=== PATIENT | male | born 1950 | race Caucasian/White ===

== ENCOUNTER 2021-02-15 12:27 | Inpatient (IN) | payer OTHER ==
[~2021-02-15] VITALS: Ht 177.8 cm; Wt 67.2 kg
[2021-02-15] VITALS (7 sets, daily range): BP systolic 120–143; BP diastolic 66–86; PULSE 65–105; TEMP 97.3–98.6
[~2021-02-15 12:27] MED LIST: ASPIRIN 81M81 MG/TA2 PO; COREG 6.256.25 MG/TA PO; PRADAXA 150MG150 MG PO; TAMBOCOR 1100 MG/TAB PO
[2021-02-15] MEDS ORDERED: TOPROL XL 50MG50 MG PO (13:13)
[2021-02-15] MEDS ORDERED: ALLEGRA 60MG TA60 MG PO (13:13)
[2021-02-15] MEDS ORDERED: ONE-A-DAY ESSE1 EACH PO (13:14)
[2021-02-15] MEDS ORDERED: NORCO 325 MG-51 TAB PO (17:29)
--- NOTE | 2021-02-15 18:29 | NUR ---
PT TO ROOM 322 PER BED WITH REPORT FROM [facility] @1941. PT IS A/O X3, LUNGS CTA, BOWEL SOUNDS HYPO ACTIVE. 3 ROBOTIC INCISIONS CDI WITH BANDAIDS. PT HAS JOCK STRAP SUPPORT INPLACE. SCDS PLACED BILATERALLY.VSS. AT BEDSIDE.
--- NOTE | 2021-02-15 18:47 | NUR ---
RECEIVED CHANGE OF SHIFT REPORT FROM DAY SHIFT NURSE.
--- NOTE | 2021-02-15 19:15 | NUR ---
REPORTS SOME ABD FULLNESS DISCOMFORT. DENIES CHEST PAIN/SOA/NAUSEA AT THIS TIME. OX PER NC AT 2L. AT BED SIDE
--- NOTE | 2021-02-15 19:43 | NUR ---
RECEIVED LATE SUPPER TRAY. DENIES NAUSEA AT THIS TIME. DENIES URGE TO VOID CURRENTLY. REMINDED PATIENT TO CALL FOR STAFF ASSIST WHEN UP FOR THE FIRST TIME POST OP. IVF INFUSING WITH NO PROBLEMS. OXYGEN PER NC AT THIS TIME TO PRANAV NARES. DENIES CHEST PAIN/SOA AT THIS TIME. REPORTS ABD FULLNESS STILL FOR DISCOMFORT.
--- NOTE | 2021-02-15 21:32 | NUR ---
PATIENT UP AMB IN ROOM WITH NO REPORTED PROBLEMS. REPORTS SOME ABD ACROSS UPPER ABD THAT IS TOLERABLE, NO NEEDS FOR PAIN MEDS AT THIS TIME. VS TAKEN. PATIENT REPORTS HE IS READY TO BE DISMISSED.
--- NOTE | 2021-02-15 21:57 | NUR ---
PATIENT SIGNED DISCHARGE PAPERWORK WITH NO FURTHER REPORT QUESTIONS OR CONCERNS AT TIME OF DISCHARGE. PRESENT TO TAKE PATIENT HOME PER PRIVATE CAR.
== END 2021-02-15 21:45 | disposition home or self-care (01) | DRG 352 ==
LOC: SDCO 12:27 → SURG 18:15
PROVIDERS: ADMIT Surgery
PROC: 8E0W4CZ Robotic Assisted Procedure of Trunk Region, Percutaneous Endoscopic Approach (ICD-10-PCS; 2021-02-15)
PROC: 0YUA4JZ Supplement Bilateral Inguinal Region with Synthetic Substitute, Percutaneous Endoscopic Approach (ICD-10-PCS; principal; 2021-02-15 14:00)
DX: K40.20 Bilateral inguinal hernia, without obstruction or gangrene, not specified as recurrent (principal); I48.91 Unspecified atrial fibrillation; Z79.82 Long term (current) use of aspirin
CPT/HCPCS: OP; C1781; J1100; J2370; J2405; J2704; J3010

== ENCOUNTER 2024-06-30 13:10 | Emergency (ER) | payer OTHER ==
[~2024-06-30] VITALS: Ht 175.3 cm; Wt 65.9 kg
[~2024-06-30 13:10] MED LIST changes: +ALLEGRA 60MG TA60 MG PO; +NORCO 325 MG-51 TAB PO; +ONE-A-DAY ESSE1 EACH PO; +TOPROL XL 50MG50 MG PO
[2024-06-30 13:26] VITALS: TEMP 98.5
[2024-06-30] MEDS ORDERED: Ondansetron 4 MG/2 ML VIAL IV ONE (13:30)
[2024-06-30] MEDS ORDERED: LR 1,000 ML IV ONE (13:30)
[2024-06-30 14:04] LABS: COLLECTION METHOD CLEAN CATCH
[2024-06-30 14:08] LABS: HEMATOCRIT 45.9 % (42.0-52.0); HEMOGLOBIN 15.5 g/dl (13.5-18.0); MEAN CELL VOLUME 91 fl (80.0-100.0); MEAN CORPUSCULAR HEMOGLOBIN 31 pg (27-31); MEAN CORPUSCULAR HGB CONC 34 g/dl (33.0-37.0); MEAN PLATELET VOLUME 9.6 fl (7.4-10.4); PLATELET COUNT 240 K/mm3 (130-400); RED BLOOD COUNT 5.06 M/mm3 (4.20-5.60); REDCELL DISTRIBUTION WIDTH-CV 12.9 % (11.5-14.5)
[2024-06-30 14:15] LABS: PH 5.5 (5.0-8.5); URINE APPEARANCE CLEAR (CLEAR/HAZY); URINE BLOOD NEGATIVE (NEGATIVE); URINE COLOR YELLOW (YELLOW); URINE GLUCOSE NEGATIVE (NEGATIVE); URINE KETONE NEGATIVE (NEGATIVE); URINE NITRATE POSITIVE (NEGATIVE); URINE PROTEIN(semi-quant) NEGATIVE (NEGATIVE); URINE UROBILINOGEN 0.2 E.U/dL (0.2-1.0)
[2024-06-30 14:24] LABS: ALBUMIN 3.8 g/dL (3.4-4.8); BILIRUBIN,TOTAL 0.9 mg/dL (0.2-1.2); C-REACTIVE PROTEIN 7.03 mg/dL (0.00-0.50); CREATININE, serum 0.79 mg/dL (0.72-1.25); POTASSIUM 3.8 mEq/L (3.5-4.5); TOTAL PROTEIN 6.7 g/dl (6.2-8.1)
[2024-06-30] MEDS ORDERED: cefTRIAXone 2 G in Water For Injection,Sterile 20 ML IV ONE (14:30)
[2024-06-30] MEDS ORDERED: CEFTIN 250250 MG/TAB PO (14:36)
[2024-06-30 14:46] VITALS: BP 130/87; PULSE 76
[2024-06-30 15:13] LABS: BAND 2 % (0-10); LYMPHOCYTE 6 % (20.0-51.0); NEUTROPHILS 84 % (42.0-75.2); PLATELET ESTIMATE NORMAL (NORMAL)
== END 2024-06-30 14:49 | disposition home or self-care (01) ==
LOC: COL.ER 13:10
PROVIDERS: Family Medicine
DX: N39.0 Urinary tract infection, site not specified (principal)
CPT/HCPCS: J0696; J2405; J7120